=== PATIENT | female | born 1965 | race Hispanic/Latino ===

== ENCOUNTER 2024-07-09 12:28 | Emergency (ER) | payer BC, SELFPAY ==
[2024-07-09 12:39] VITALS: BP 161/86
[2024-07-09 13:06] LABS: % Basophils 0.5 % (0-2); % Immature Granulocytes 0.5 % (0-0.5); % Lymphocytes 20.2 % (20.5-51.1); % Monocytes 8.5 % (1.7-9.3); % Neutrophils 69.3 % (42.2-75.2); Absolute Eosinophils 0.1 10^3/uL (0-0.7); Absolute Lymphocytes 1.7 10^3/uL (1.2-3.4); Absolute Monocytes 0.7 10^3/uL (0.1-0.6); Hematocrit 41.6 % (37.0-47.0); Hemoglobin 13.9 g/dL (12.0-16.0); Mean Corp Hgb Conc. 33.4 g/dL (33.0-37.0); Mean Corpuscular Hgb 29.4 pg (27.0-31.0); Mean Corpuscular Volume 88.1 fL (81.0-99.0); Mean Platelet Volume 9.6 fL (7.4-10.4); Nucleated Red Blood Cells % 0 %; Platelet Count 275 10^3/uL (130-400); Red Blood Cell Count 4.72 10^6/uL (4.20-5.40); White Blood Cell Count 8.6 10^3/uL (4.8-10.8)
[2024-07-09 13:15] LABS: HCG, Serum Qualitative Screen Negative
[2024-07-09 13:17] LABS: Urine Albumin Negative (Neg - Trace); Urine Bilirubin Negative (Negative); Urine Character Clear (Clear); Urine Color Yellow; Urine Glucose Negative (Negative); Urine Ketone Negative (Negative); Urine Leukocyte Negative (Negative); Urine Nitrite Negative (Negative); Urine Occult Blood Negative (Negative); Urine Specific Gravity 1.015 (<1.030); Urine Urobilinogen Negative (Neg - 1+)
[2024-07-09 13:21] LABS: ALT (SGPT) 21 U/L (0-35); AST (SGOT) 26 U/L (14-36); Albumin 4.3 g/dl (3.5-5.0); Alkaline Phosphatase 64 U/L (38-126); Blood Urea Nitrogen 12 mg/dl (7-17); Calcium 9.9 mg/dl (8.4-10.2); Carbon Dioxide 28 mmol/L (22-30); Chloride 102 mmol/L (98-107); Glucose 107 mg/dl (70-99); Lipase 101 U/L (23-300); Potassium 4.6 mmol/L (3.5-5.1); Sodium 139 mmol/L (135-145); Total Bilirubin 0.7 mg/dl (0.2-1.3); Total Protein 7.5 g/dl (6.3-8.2); eGFR > 60.00
--- NOTE | 2024-07-09 14:46 | ED.GENMED ---
History of Present Illness
General
Chief Complaint: Abdominal Pain
Source: patient
Exam Limitations: none
Time Seen by Provider: 07/09/24 14:15
Nursing documentation reviewed up to this point in time: agreed with
History of Present Illness
History of Present Illness:
59-year-old female chills lower abdominal pelvic pain no fevers recent travel to [place], mild dysuria similar but less severe than her prior UTI seen in urgent care told her urine was negative referred here no prior abdominal surgeries no prior
colonoscopies
Past History
Past History
ED Past Medical History: HTN
ED Past Surgical History: Negative Appendectomy, Bowel resection or Cholecystectomy
Social History
Tobacco: Non-smoker
Alcohol: None
Personal:
Living: with family
Employment: Employed
Review of Systems
Review of Systems
All Other Systems: Not applicable
Constitutional: Reports fatigue and chills
EENT: Reports no symptoms
Respiratory: Reports no symptoms
Cardiac: Reports no symptoms
ABD/GI: Reports abdominal pain
: Reports dysuria
Musculoskeletal: Reports no symptoms
Phy Exam
Physical Exam
Physical Exam:
Physical Exam
General: no apparent distress, not acutely ill
Neck: Without jaundice
Heart: s1/s2 regular rate and rhythm, no murmur. equal radial pulses.
Lungs: no acute respiratory distress. clear bilaterally
Abdomen: Soft minimal right greater than left lower abdominal
Neuro: alert and oriented. no focal neurological deficits
Skin: no rash
Psychiatric: well kept. interactive and cooperative
Extremities: no edema.
Course
Orders/Labs/Results
Orders:
Orders
07/09/24 12:45
Test Result ONCE
07/09/24 12:55
Complete Blood Count/With Diff Urgent
Comprehensive Metabolic Panel Urgent
HCG, Serum Qualitative Screen Urgent
Lipase Urgent
Urinalysis Reflex To Culture Urgent
Date Specimen was Collected: 07/09/24
Time Specimen was Collected: 12:45
07/09/24 14:46
CT Abd/Pel (IV only)-DH only Urgent
Comment:
Reason For Exam: rlq pain
Ketorolac [Toradol] 30 mg IV NOW STA
Abnormal Lab Results
07/09/24
12:55
Absolute Monos (auto) 0.7 H 10^3/uL
(0.1-0.6)
Lymphocytes % 20.2 L %
(20.5-51.1)
Glucose 107 H mg/dl
(70-99)
07/09/24 12:55
07/09/24 12:55
Vital Signs
Initial and Last Documented VS:
Initial Vital Signs
Temp Pulse Resp BP Pulse Ox
97.6 F 74 16 161/86 100
07/09/24 12:39 07/09/24 12:39 07/09/24 12:39 07/09/24 12:39 07/09/24 12:39
Last Documented Vital Signs
Temp Pulse Resp BP Pulse Ox
97.6 F 74 18 120/93 98
07/09/24 12:39 07/09/24 19:14 07/09/24 18:00 07/09/24 19:14 07/09/24 18:00
MDM/Problems Addressed
Differential Diagnosis Includes:
Diverticulitis appendicitis UTI nephrolithiasis
MDM/Problems Addressed:
Abdominal pain chills
*Radiology
Radiology exam reviewed: radiology read reviewed
*Critical Care Note
Total Time (30-74mins, 75-104mins- exclusive of procedures): Not Applicable
ED Attending Note
-
Portions of this chart may have been created with voice recognition software.� Occasional wrong word or��sound alike� substitutions may have occurred due to the inherent limitations of voice recognition software.
Discharge Plan
Departure
Patient Disposition: Home (Routine Discharge)
Date of Disposition: 07/09/24
Time of Disposition: 18:59
Patient with high blood pressure during this ER visit?: Yes
Condition: Good
Covid-19: Not Applicable
Discharge Problem:
Diverticulitis
Instructions: Clear Liquid Diet
Prescriptions:
New
amoxicillin-pot clavulanate 875-125 mg tablet
1 tab PO BID Qty: 14 0RF
Referrals:
Neris Blank DO [Family Provider] -
Activity Restrictions/Additional Instructions:
please follow up with your doctor for a colonoscopy after you complete the antibiotics
return to ER with worsening symptoms
Interventions
Interventions:
*Risk Screen - Suicide Last Done: 07/09/24 15:16
*General Assessment Last Done: 07/09/24 15:16
*Neglect/Abuse Screening Last Done: 07/09/24 15:16
*ED- Fall Risk Assessment Last Done: 07/09/24 15:16
*ED COVID-19 Vaccine History Last Done: 07/09/24 15:16
*Nursing Disposition Last Done: 07/09/24 19:18
HM-Bcu[facility]-Erltjgsduc Assessment Last Done: 07/09/24 18:49
Discharge Date and Time
Discharge Date/Time: 07/09/24 19:23
Print Language: FAROESE
[2024-07-09 15:13] VITALS: BMI 31.1
[2024-07-09 16:00] VITALS: BP 129/67
[2024-07-09 18:00] VITALS: BP 132/80
[2024-07-09 19:14] VITALS: BP 120/93
== END 2024-07-09 19:23 | disposition home or self-care (01) ==
LOC: EMR 12:28
PROVIDERS: Emergency Medicine; EMERGENCY PHYSICIAN Emergency Medicine; FAMILY PHYSICIAN Family Medicine
DX: K57.32 Diverticulitis of large intestine without perforation or abscess without bleeding (principal); I10 Essential (primary) hypertension
CPT/HCPCS: 99284; 74177; 80053; 81003; 83690; 84703; 85025; Q9967